=== PATIENT | female | born 1935 | race Caucasian/White ===

== ENCOUNTER → 2016-07-15 | Outpatient (CLI) | payer MEDICARE, BC ==
--- NOTE | 2016-07-15 13:58 | REPMRS ---
Patient History The patient states she had a clinical breast exam in 12/2015. Patient is postmenopausal. Family history of breast cancer in maternal grandmother. Taking estrogen for 11 years. Digital Woman Screen Mammo: July 15, 2016 - Exam #: [id number] Bilateral CC and MLO view(s) were taken. Technologist: Delmy Wagner, Technologist Prior study comparison: March 02, 2015, digital mammo diagnostic bilateral, performed at [facility]. August 23, 2013, digital woman screen mammo performed at [facility]. December 06, 2010, bilateral bilat screen digital mammo performed at [facility]. FINDINGS: There are scattered fibroglandular densities. There has been no change in the appearance of the mammogram from the prior studies. There is a mild amount of scattered fibroglandular density which is fairly symmetric. There is no interval development of dominant mass, architectural distortion, or clustered microcalcification suggestive of malignancy. ASSESSMENT: BI-RADS/ACR category 1 mammogram. Negative. Recommendation Routine screening mammogram in 1 year (for women over age 40). This mammogram was interpreted with the aid of an FDA-approved computer-aided dectection system. Electronically Signed By: Jason Ramos MD 07/15/16 [id number]
== END ==
LOC: M WHC 13:02
PROVIDERS: ATTEND Nurse Practitioner Family
DX: Z12.31 Encounter for screening mammogram for malignant neoplasm of breast (principal)

== ENCOUNTER → 2016-07-25 | Outpatient (REF) | payer MEDICARE, BC ==
[2016-07-27 15:17] LABS: Lyme Disease IgG/IgM Antibodie <0.91 ISR (0.00-0.90); Lyme Disease IgM Ab Quantitati <0.80 index (0.00-0.79)
== END ==
LOC: M LAB REF 17:13
PROVIDERS: ATTEND Nurse Practitioner Family
DX: Z11.8 Encounter for screening for other infectious and parasitic diseases (principal)

== ENCOUNTER → 2016-09-02 | Outpatient (REF) | payer MEDICARE | LOC: M LABDRAW1 15:36 | PROVIDERS: ATTEND Internal Medicine Nephrology | DX: R80.9 Proteinuria, unspecified (principal) ==

== ENCOUNTER → 2016-11-25 | Outpatient (CLI) | payer MEDICARE ==
--- NOTE | 2016-12-02 08:26 | SLEEPCENT ---
DATE OF PROCEDURE: 11/25/2016 ORDERED BY: Maria Del Carmen Spann NP Nocturnal polysomnography was performed for the titration of pressure therapy in this patient with a clinical diagnosis obstructive sleep apnea syndrome supported by home testing, which revealed a respiratory event index of 19.4. For testing, a ResMed AirFit N20 nasal mask of small size was used. 4 cm of water pressure were applied to the circuit and the lights were extinguished. 7 hours and 48 minutes of data were reviewed. There were 396 minutes of sleep identified. Sleep latency was short at 23 minutes. Rapid eye movement (REM) latency was short at 89 minutes. Sleep architecture was good with 4 REM periods appreciated. Overall sleep efficiency was 85%. EKG showed a sinus rhythm with an average heart rate of 62 beats per minute. EEG showed normal waveforms for awake and sleep. Respiratory events were fully palliated with CPAP at the initial pressure of +4. There was minimal snoring, no oxygen desaturations and some limb activity with limb movement arousal index of 3.8. IMPRESSION: Obstructive sleep apnea syndrome (G47.33). RECOMMENDATION: Nightly use of CPAP 4 cm of water.
== END ==
LOC: M SLEEP 19:49
PROVIDERS: ATTEND Nurse Practitioner Adult Health
DX: G47.33 Obstructive sleep apnea (adult) (pediatric) (principal)

== ENCOUNTER → 2017-02-06 | Outpatient (REF) | payer MEDICARE, BC, OTHER ==
[2017-02-06 14:09] LABS: RBC, URINE 0-1 /hpf (0-3); SQUAMOUS EPITHELIAL CELL URINE SMALL AMOUNT /hpf (SMALL AMT)
[2017-02-06 14:10] LABS: BACTERIA, URINE NONE SEEN; HYALINE CAST, URINE NONE SEEN /lpf (0-1); MICROSCOPIC EXAM PERFORMED
== END ==
LOC: M LAB REF 13:40
PROVIDERS: ATTEND Internal Medicine Nephrology
DX: R31.9 Hematuria, unspecified (principal)

== ENCOUNTER → 2019-10-21 | Outpatient (CLI) | payer MEDICARE, BC, OTHER ==
[~2019-10-21] MED LIST: ISOVUE-370 76% 100ML VIAL As Ordered ONE
--- NOTE | 2019-10-21 12:12 | REP ---
REASON FOR EXAM: Hematuria. COMPARISON: Standard contrast enhanced examination 03/29/2011. CONTRAST: 100 mL Isovue 370. There are chronic lung field changes status quo. There is a large hiatal hernia, which has increased from the prior exam. The liver and spleen are unchanged. The gallbladder is again seen to be within normal limits. The pancreas, adrenal glands, and left kidney are again seen to be within normal limits and essentially unchanged. There is a large, and in fact, huge right renal cyst, which today measures approximately 12.3 x 12 x 12.2 cm. No septations or enhancing mural nodules have developed since the last exam. Minimal egg-shell rim calcifications have developed along a portion of the renal base portion of this exophytic cyst. The abdominal aorta and paraaortic regions are essentially unchanged. No free fluid or free air has developed in the abdomen or pelvis. The bowel loops and their mesenteries are essentially unchanged. Sigmoid colon and descending colon diverticulosis is noted status quo. Bone window technique through the examination shows cystic changes in the right femoral head which have developed since the last exam. There are chronic spinal and hip degenerative changes. Delayed imaging shows the opacified portion of the urinary bladder to be free of filling defects. The right ureter is incompletely opacified and there is distortion of the right renal collecting system also incompletely opacified and likely secondary to the large, and in fact, huge right renal cyst. The left renal collecting system opacified completely. IMPRESSION: 1. There is a large, and in fact, huge right renal cyst as described above. 2. Large hiatal hernia which has increased from the prior exam. 3. Chronic osseous changes as described above with new cystic changes in the right femoral head. Consider followup with MRI. 4. Other findings and chronic changes as described above. Electronically Signed by Glenn Puri DO 10/21/2019 12:56 P
== END ==
LOC: M RAD 10:28
PROVIDERS: ATTEND Nurse Practitioner Family
DX: R31.9 Hematuria, unspecified (principal)
CPT/HCPCS: 74177; Q9967

== ENCOUNTER → 2020-02-16 | Outpatient (REF) | payer MEDICARE, OTHER | LOC: M LAB REF 10:00 | PROVIDERS: ATTEND Ophthalmology | DX: H02.834 Dermatochalasis of left upper eyelid (principal); H02.831 Dermatochalasis of right upper eyelid ==

== ENCOUNTER → 2020-04-19 | Outpatient (REF) | payer MEDICARE, OTHER ==
[2020-04-19 18:02] LABS: BACTERIA, URINE AUTO 1+ (NEGATIVE); MUCUS, URINE SMALL (NEGATIVE); RBC, URINE AUTO 4 /HPF (0-3); SQUAMOUS EPITHELIAL CELL UR AU 4 /HPF (0-6); WBC, URINE AUTO 50 /HPF (0-3)
== END ==
LOC: M LAB REF 16:53
PROVIDERS: ATTEND Nurse Practitioner Family
DX: R31.9 Hematuria, unspecified (principal)

== ENCOUNTER 2021-06-15 13:03 | Inpatient (IN) | payer MEDICARE, OTHER, BC ==
[~2021-06-15] VITALS: Ht 165.1 cm; Wt 82.9 kg
[2021-06-15] MEDS ORDERED: vitamin D PO (13:19)
[2021-06-15] MEDS ORDERED: OMEP-173 PO (13:19)
[2021-06-15] MEDS ORDERED: IRON1TAB2 PO (13:19)
[2021-06-15] MEDS ORDERED: ESTR0.1C5 PV (13:19)
[2021-06-15] MEDS ORDERED: IRBE300T7 PO (13:19)
[2021-06-15 14:08] LABS: HEMATOCRIT 45.2 % (36.0-47.0); HEMOGLOBIN 15.1 g/dl (12.0-15.5); LYMPH # 0.6 10^3/uL (1.5-5.0); LYMPH % 7.5 % (24.0-44.0); MEAN CORPUSCULAR HEMOGLOBIN 30.2 pg (27.0-33.0); MEAN CORPUSCULAR HGB CONC 33.4 g/dl (32.0-36.5); MEAN CORPUSCULAR VOLUME 90.4 fl (80.0-96.0); MONO # 0.3 10^3/uL (0.0-0.8); MONO % 3.2 % (2.0-8.0); NEUTROPHILS # 7.6 10^3/uL (1.5-8.5); NEUTROPHILS % 88.8 % (36.0-66.0); PLATELET COUNT, AUTOMATED 224 10^3/uL (150-450); WHITE BLOOD COUNT 8.5 10^3/uL (4.0-10.0)
[2021-06-15] MEDS ORDERED: IRBESARTAN 150MG TAB PO STA (14:27)
[2021-06-15] MEDS ORDERED: NS 500 ML IV ONE (14:30)
[2021-06-15 14:32] LABS: ALBUMIN 3.6 GM/DL (3.2-5.2); ALT/SGPT 20 U/L (12-78); BILIRUBIN,DIRECT 0.2 MG/DL (0.0-0.2); BILIRUBIN,TOTAL 0.6 MG/DL (0.2-1.0); BLOOD UREA NITROGEN 14 MG/DL (7-18); CALCIUM LEVEL 8.9 MG/DL (8.8-10.2); CARBON DIOXIDE LEVEL 24 MEQ/L (21-32); CHLORIDE LEVEL 101 MEQ/L (98-107); CREATININE FOR GFR 0.86 MG/DL (0.55-1.30); GLOMERULAR FILTRATION RATE > 60.0 (>32); GLUCOSE, FASTING 135 MG/DL (70-100); LIPASE 49 U/L (73-393); SODIUM LEVEL 135 MEQ/L (136-145); TOTAL PROTEIN 7.9 GM/DL (6.4-8.2)
[2021-06-15] MEDS ORDERED: ISOVUE-370 76% 100ML VIAL As Ordered ONE (14:38)
[2021-06-15] MEDS ORDERED: D31000TA2 PO (15:51)
[2021-06-15] MEDS ORDERED: HOME MED LIST COMPLETE! XX SCH (15:55)
[2021-06-15] MEDS ORDERED: MORPHINE 2 MG/ML 1ML VIAL (J2270) IV PRN (17:15)
[2021-06-15] MEDS ORDERED: ONDANSETRON 4MG/2ML VIAL IV PRN (17:15)
[2021-06-15] MEDS ORDERED: ACETAMINOPHEN TAB 650MG DOSE (2X325MG) PO PRN (17:15)
[2021-06-15] MEDS ORDERED: KETOROLAC 30 MG/ML 1ML VIAL IV PRN (17:15)
[2021-06-15] MEDS ORDERED: PANTOPRAZOLE 40MG VIAL (C9113 PER 1) IV ONE (18:00)
[2021-06-15] MEDS: NS 1,000 ML IV SCH (18:21)
[2021-06-15 20:45] VITALS: BP 151/79
[2021-06-16] VITALS (8 sets, daily range): BP systolic 128–170; BP diastolic 70–95
[2021-06-16] MEDS: NS 1,000 ML IV SCH ×3 (01:59→18:41)
[2021-06-16] MEDS: PANTOPRAZOLE 40MG VIAL (C9113 PER 1) IV SCH (08:02)
[2021-06-16 08:19] LABS: HEMATOCRIT 43.5 % (36.0-47.0); HEMOGLOBIN 14.2 g/dl (12.0-15.5); LYMPH # 1.1 10^3/uL (1.5-5.0); LYMPH % 10.7 % (24.0-44.0); MEAN CORPUSCULAR HEMOGLOBIN 30.1 pg (27.0-33.0); MEAN CORPUSCULAR HGB CONC 32.6 g/dl (32.0-36.5); MEAN CORPUSCULAR VOLUME 92.2 fl (80.0-96.0); MONO # 0.9 10^3/uL (0.0-0.8); MONO % 8.9 % (2.0-8.0); NEUTROPHILS # 8.2 10^3/uL (1.5-8.5); NEUTROPHILS % 79.8 % (36.0-66.0); PLATELET COUNT, AUTOMATED 223 10^3/uL (150-450); RED BLOOD COUNT 4.72 10^6/uL (4.00-5.40); WHITE BLOOD COUNT 10.2 10^3/uL (4.0-10.0)
[2021-06-16 08:35] LABS: BLOOD UREA NITROGEN 14 MG/DL (7-18); CALCIUM LEVEL 8.6 MG/DL (8.8-10.2); CARBON DIOXIDE LEVEL 25 MEQ/L (21-32); CHLORIDE LEVEL 107 MEQ/L (98-107); CREATININE FOR GFR 0.76 MG/DL (0.55-1.30); GLOMERULAR FILTRATION RATE > 60.0 (>32); GLUCOSE, FASTING 106 MG/DL (70-100); POTASSIUM SERUM 3.9 MEQ/L (3.5-5.1); SODIUM LEVEL 139 MEQ/L (136-145)
[2021-06-16] MEDS ORDERED: cefoTEtan DISODIUM 2 GM in D5W MINI-BAG PLUS 50 ML IV ONE (15:37)
[2021-06-16] MEDS ORDERED: dexameTHASONE 4 MG/ML 1ML VIAL (J1100 PER 1MG) As Ordered ONE (15:48)
[2021-06-16] MEDS ORDERED: ONDANSETRON 4MG/2ML VIAL As Ordered ONE (15:48)
[2021-06-16] MEDS ORDERED: fentaNYL 100 MCG/2 ML INJECTION As Ordered ONE ×2 (15:48→17:13)
[2021-06-16] MEDS ORDERED: SUGAMMADEX SODIUM 500 MG/5 ML VIAL (BRIDION) As Ordered ONE (15:49)
[2021-06-16] MEDS ORDERED: ePHEDrine SULFATE 25 MG/5 ML(5MG/ML) SYRINGE As Ordered ONE (15:49)
[2021-06-16] MEDS ORDERED: ROCURONIUM BROMIDE 50 MG/5 ML VIAL As Ordered ONE (15:49)
[2021-06-16] MEDS ORDERED: LIDOCAINE 2% 100MG/5ML SDV (FOR ANES.) As Ordered ONE (15:49)
[2021-06-16] MEDS ORDERED: PHENYLephrine 500MCG 5ML (100MCG/ML) SYRINGE As Ordered ONE (15:49)
[2021-06-16] MEDS ORDERED: propofoL 200 MG/20 ML VIAL As Ordered ONE (15:49)
[2021-06-16] MEDS ORDERED: cefoTEtan INJ 2GM VIAL (S0074 PER 500MG) As Ordered ONE (16:15)
[2021-06-16] MEDS ORDERED: BUPIVACAINE/EPIN 0.25% 30 ML VIAL As Ordered ONE (16:15)
[2021-06-16] MEDS ORDERED: SUCCINYLCHOLINE 100 MG/5 ML SYRINGE (J0330) As Ordered ONE (16:38)
[2021-06-16] MEDS ORDERED: ACETAMINOPHEN 1000MG 100ML IV BTL (OFIRMEV) (J0131 PER 10MG) As Ordered ONE (16:55)
[2021-06-16] MEDS: IRBESARTAN 150MG TAB PO SCH (18:50)
[2021-06-17] MEDS: NS 1,000 ML IV SCH ×2 (02:21→08:22)
[2021-06-17 03:45] VITALS: BP 143/73
[2021-06-17 06:00] VITALS: BP 143/83
[2021-06-17] MEDS: PANTOPRAZOLE 40MG VIAL (C9113 PER 1) IV SCH (08:21)
[2021-06-17] MEDS: IRBESARTAN 150MG TAB PO SCH (08:21)
[2021-06-17 10:00] VITALS: BP 140/71
[2021-06-17 10:58] LABS: BASO % 0.1 % (0.0-1.0); HEMATOCRIT 40.2 % (36.0-47.0); HEMOGLOBIN 13.1 g/dl (12.0-15.5); LYMPH # 0.9 10^3/uL (1.5-5.0); LYMPH % 5.7 % (24.0-44.0); MEAN CORPUSCULAR HEMOGLOBIN 30.5 pg (27.0-33.0); MEAN CORPUSCULAR HGB CONC 32.6 g/dl (32.0-36.5); MEAN CORPUSCULAR VOLUME 93.5 fl (80.0-96.0); MONO % 9.8 % (2.0-8.0); NEUTROPHILS # 13.7 10^3/uL (1.5-8.5); NEUTROPHILS % 83.9 % (36.0-66.0); PLATELET COUNT, AUTOMATED 185 10^3/uL (150-450); WHITE BLOOD COUNT 16.3 10^3/uL (4.0-10.0)
[2021-06-17 11:12] LABS: BLOOD UREA NITROGEN 14 MG/DL (7-18); CALCIUM LEVEL 7.8 MG/DL (8.8-10.2); CARBON DIOXIDE LEVEL 25 MEQ/L (21-32); CHLORIDE LEVEL 109 MEQ/L (98-107); CREATININE FOR GFR 0.81 MG/DL (0.55-1.30); GLOMERULAR FILTRATION RATE > 60.0 (>32); GLUCOSE, FASTING 93 MG/DL (70-100); POTASSIUM SERUM 3.6 MEQ/L (3.5-5.1); SODIUM LEVEL 141 MEQ/L (136-145)
[2021-06-17 11:22] LABS: MONO # 1.6 10^3/uL (0.0-0.8)
[2021-06-17] MEDS ORDERED: NORCO, ANEXSIA 5/325MG TABLET (HYDROcodone/ACETAMINOPHEN) PO PRN (11:45)
[2021-06-17] MEDS ORDERED: IBUPROFEN 400MG TAB PO PRN (11:45)
[2021-06-17] MEDS: OMEPRAZOLE 20MG CAP PO SCH (12:34)
[2021-06-17 14:00] VITALS: BP 140/73
[2021-06-17 18:00] VITALS: BP 114/68
[2021-06-17 22:00] VITALS: BP 117/68
[2021-06-18 02:00] VITALS: BP 124/69
[2021-06-18 06:00] VITALS: BP 126/69
[2021-06-18 10:00] VITALS: BP 129/69
[2021-06-18] MEDS: OMEPRAZOLE 20MG CAP PO SCH (10:36)
[2021-06-18 10:38] VITALS: BP 129/69
[2021-06-18] MEDS: IRBESARTAN 150MG TAB PO SCH (10:38)
== END 2021-06-18 14:37 | disposition home or self-care (01) | DRG 337 ==
LOC: M ED 13:03 → M ED INP 17:11 → ENRESERV 18:40 → M MSPAV 20:12
PROVIDERS: ADMIT Surgery; ATTEND Surgery
PROC: 0DN84ZZ Release Small Intestine, Percutaneous Endoscopic Approach (ICD-10-PCS; principal; 2021-06-16 15:59)
DX: K56.50 Intestinal adhesions [bands], unspecified as to partial versus complete obstruction (principal); I12.9 Hypertensive chronic kidney disease with stage 1 through stage 4 chronic kidney disease, or unspecified chronic kidney disease; N18.9 Chronic kidney disease, unspecified; G47.33 Obstructive sleep apnea (adult) (pediatric); K21.9 Gastro-esophageal reflux disease without esophagitis

== ENCOUNTER → 2021-10-10 | Outpatient (CLI) | payer MEDICARE, OTHER, BC ==
[~2021-10-10] MED LIST changes: +ESTR0.1C5 PV; +IRBE300T7 PO; +IRON1TAB2 PO; -ISOVUE-370 76% 100ML VIAL As Ordered ONE; +OMEP-173 PO; +VITA100093 PO; +vitamin D PO
== END ==
LOC: M PLAIMG 16:00
PROVIDERS: ATTEND Registered Nurse
DX: M25.751 Osteophyte, right hip (principal)

== ENCOUNTER → 2021-10-29 | Outpatient (CLI) | payer MEDICARE, BC, OTHER | LOC: M RAD 15:02 | PROVIDERS: ATTEND Nurse Practitioner Family | DX: N18.2 Chronic kidney disease, stage 2 (mild) (principal); N28.1 Cyst of kidney, acquired ==

== ENCOUNTER → 2022-01-14 | Outpatient (CLI) | payer MEDICARE, BC, OTHER ==
[2022-01-14 10:45] LABS: HEMATOCRIT 42.7 % (36.0-47.0); HEMOGLOBIN 14.1 g/dl (12.0-15.5); MEAN CORPUSCULAR HEMOGLOBIN 31.1 pg (27.0-33.0); MEAN CORPUSCULAR VOLUME 94.3 fl (80.0-96.0); PLATELET COUNT, AUTOMATED 217 10^3/uL (150-450); RED BLOOD COUNT 4.53 10^6/uL (4.00-5.40); WHITE BLOOD COUNT 4.5 10^3/uL (4.0-10.0)
[2022-01-14 10:56] LABS: INR 1.01; PROTHROMBIN TIME 13.7 SECONDS (12.7-14.5)
[2022-01-14 11:12] LABS: ERYTHROCYTE SEDIMENTATION RATE 7 mm/hr (0-30)
[2022-01-14 11:19] LABS: ALBUMIN 3.2 GM/DL (3.2-5.2); ALT/SGPT 15 U/L (12-78); BILIRUBIN,TOTAL 0.4 MG/DL (0.2-1.0); BLOOD UREA NITROGEN 18 MG/DL (7-18); CALCIUM LEVEL 9.4 MG/DL (8.8-10.2); CARBON DIOXIDE LEVEL 25 MEQ/L (21-32); CHLORIDE LEVEL 109 MEQ/L (98-107); CREATININE FOR GFR 0.86 MG/DL (0.55-1.30); GLOMERULAR FILTRATION RATE > 60.0 (>32); GLUCOSE, FASTING 106 MG/DL (70-100); POTASSIUM SERUM 4.3 MEQ/L (3.5-5.1); SODIUM LEVEL 140 MEQ/L (136-145); TOTAL PROTEIN 6.9 GM/DL (6.4-8.2)
== END ==
LOC: M LAB 09:22
PROVIDERS: ATTEND Internal Medicine
DX: Z01.818 Encounter for other preprocedural examination (principal); M16.11 Unilateral primary osteoarthritis, right hip; I10 Essential (primary) hypertension

== ENCOUNTER → 2022-06-18 | Outpatient (CLI) | payer MEDICARE, BC, OTHER | LOC: M RAD 11:14 | PROVIDERS: ATTEND Registered Nurse | DX: I82.411 Acute embolism and thrombosis of right femoral vein (principal) ==

== ENCOUNTER → 2023-05-27 | Outpatient (CLI) | payer MEDICARE, BC, OTHER | LOC: M WHC 12:53 | PROVIDERS: ATTEND Internal Medicine | DX: Z12.31 Encounter for screening mammogram for malignant neoplasm of breast (principal); M85.89 Other specified disorders of bone density and structure, multiple sites; Z13.820 Encounter for screening for osteoporosis ==

== ENCOUNTER → 2023-12-09 | Outpatient (REF) | payer MEDICARE, BC, OTHER ==
[~2023-12-09] MED LIST changes: +IRBE300T25 PO; -IRBE300T7 PO
[2023-12-09 19:42] LABS: FERRITIN 4.8 NG/ML (7.3-270.7)
== END ==
LOC: M LAB REF 17:48
PROVIDERS: ATTEND Nurse Practitioner Family
DX: D50.9 Iron deficiency anemia, unspecified (principal)

== ENCOUNTER → 2024-01-13 | Outpatient (CLI) | payer MEDICARE, BC ==
[2024-01-13 14:05] LABS: BASO % 0.2 % (0.0-1.0); EOS # 0.1 10^3/uL (0.0-0.5); EOS % 1.1 % (0.0-3.0); HEMATOCRIT 37.4 % (36.0-47.0); HEMOGLOBIN 11.5 g/dl (12.0-15.5); LYMPH # 1.2 10^3/uL (1.5-5.0); MEAN CORPUSCULAR HEMOGLOBIN 26.1 pg (27.0-33.0); MEAN CORPUSCULAR HGB CONC 30.7 g/dl (32.0-36.5); MONO # 0.7 10^3/uL (0.0-0.8); MONO % 12.7 % (2.0-8.0); NEUTROPHILS # 3.3 10^3/uL (1.5-8.5); NEUTROPHILS % 62.6 % (36.0-66.0); PLATELET COUNT, AUTOMATED 212 10^3/uL (150-450); WHITE BLOOD COUNT 5.3 10^3/uL (4.0-10.0)
[2024-01-13 14:35] LABS: PERCENT SATURATION 37.9 % (13.2-45.0)
== END ==
LOC: M PLALAB 11:42
PROVIDERS: ATTEND Nurse Practitioner Family
DX: D50.9 Iron deficiency anemia, unspecified (principal)

== ENCOUNTER → 2025-03-25 | Outpatient (REF) | payer MEDICARE, BC | LOC: M LAB REF 13:02 | PROVIDERS: ATTEND Internal Medicine | DX: D50.9 Iron deficiency anemia, unspecified (principal) ==

== ENCOUNTER → 2025-06-03 | Outpatient (REF) | payer MEDICARE, BC ==
[2025-06-03 17:50] LABS: IRON (FE) 19.0 UG/DL (50-170); PERCENT SATURATION 6.1 % (13.2-45.0)
== END ==
LOC: M LAB REF 17:10
PROVIDERS: ATTEND Nurse Practitioner Family
DX: D50.9 Iron deficiency anemia, unspecified (principal)